=== PATIENT | male | born 1955 | race Caucasian/White ===

== ENCOUNTER 2017-10-04 11:25 | Emergency (ER) | payer BC ==
[~2017-10-04] VITALS: Ht 180.3 cm; Wt 106.4 kg
[2017-10-04 12:32] VITALS: BP 123/87
== END 2017-10-04 12:32 | disposition home or self-care (01) ==
LOC: EME 11:25
DX: H53.8 Other visual disturbances (principal); I10 Essential (primary) hypertension
CPT/HCPCS: 99281; 99283